=== PATIENT | female | born 1990 | race Hispanic/Latino ===

== ENCOUNTER 2016-12-12 21:23 | Emergency (ER) | payer OTHER ==
[~2016-12-12] VITALS: Ht 170.2 cm; Wt 109.4 kg
[~2016-12-12 21:23] MED LIST: AMOXIL500 MG OR; CIPRO500 MG OR; FLEXERIL OR; KEFLEX500 MG PO; LORTAB 10-325 M1 TAB PO; LORTAB 5/3255 MG PO; MOTRIN800 MG PO; PENICILLN VK500 MG PO; ULTRAM50 M1 OR; ULTRAM50 MG OR; ZOFRAN ODT4 MG OR; ZOFRAN4 MG/TAB PO
[2016-12-13] MEDS ORDERED: TRAMADOL HYDROC50 MG PO (00:52)
[2016-12-13 01:09] VITALS: BP 127/66
== END 2016-12-13 01:09 | disposition home or self-care (01) | DRG 566 ==
LOC: ED 21:23
DX: M77.31 Calcaneal spur, right foot (principal); M79.604 Pain in right leg

== ENCOUNTER 2017-01-18 14:15 | Emergency (ER) | payer SELFPAY ==
[~2017-01-18] VITALS: Ht 162.6 cm; Wt 111.0 kg
[~2017-01-18 14:15] MED LIST changes: +TRAMADOL HYDROC50 MG PO
[2017-01-18 15:06] LABS: INFLUENZA A NONE DETECTED (NONE DETECT); INFLUENZA B NONE DETECTED (NONE DETECT)
[2017-01-18] MEDS ORDERED: ZITHROMAX250 MG PO (16:18)
[2017-01-18 16:31] VITALS: BP 139/83
== END 2017-01-18 16:33 | disposition home or self-care (01) | DRG 203 ==
LOC: ED 14:15
PROVIDERS: Emergency Medicine
DX: J40 Bronchitis, not specified as acute or chronic (principal); R09.81 Nasal congestion; R05 Cough; R50.9 Fever, unspecified; R06.02 Shortness of breath; M79.1 Myalgia

== ENCOUNTER 2017-12-12 10:25 | Emergency (ER) | payer SELFPAY ==
[~2017-12-12] VITALS: Ht 162.6 cm; Wt 109.0 kg
[~2017-12-12 10:25] MED LIST changes: +ZITHROMAX250 MG PO
[2017-12-12 11:14] LABS: INFLUENZA A NONE DETECTED (NONE DETECT); INFLUENZA B NONE DETECTED (NONE DETECT)
[2017-12-12] MEDS ORDERED: ONDANSETRON4 MG PO (11:29)
[2017-12-12] MEDS ORDERED: TAM75CAP PO (11:29)
[2017-12-12 11:35] VITALS: BP 118/76
[2017-12-13] MEDS ORDERED: AMOXICILLIN500 MG PO (22:17)
== END 2017-12-12 11:35 | disposition home or self-care (01) | DRG 153 ==
LOC: ED 10:25
PROVIDERS: Family Medicine
DX: J11.1 Influenza due to unidentified influenza virus with other respiratory manifestations (principal); H92.01 Otalgia, right ear; M54.2 Cervicalgia; R05 Cough; R09.81 Nasal congestion; R50.9 Fever, unspecified

== ENCOUNTER 2017-12-13 19:56 | Emergency (ER) | payer BC ==
[~2017-12-13] VITALS: Ht 162.6 cm; Wt 108.0 kg
[~2017-12-13 19:56] MED LIST changes: +ONDANSETRON4 MG PO; +TAM75CAP PO
[2017-12-13] MEDS ORDERED: AMOXICILLIN500 MG PO (22:17)
[2017-12-13 22:20] VITALS: BP 105/57
== END 2017-12-13 22:20 | disposition home or self-care (01) | DRG 153 ==
LOC: ED 19:56
DX: J11.1 Influenza due to unidentified influenza virus with other respiratory manifestations (principal); H92.01 Otalgia, right ear; R05 Cough; R11.2 Nausea with vomiting, unspecified; R50.9 Fever, unspecified

== ENCOUNTER 2018-07-24 18:51 | Emergency (ER) | payer SELFPAY ==
[~2018-07-24] VITALS: Ht 162.6 cm; Wt 110.0 kg
[~2018-07-24 18:51] MED LIST changes: +AMOXICILLIN500 MG PO
[2018-07-24 20:09] LABS: URINE BILIRUBIN - DIPSTICK NEGATIVE (NEGATIVE); URINE BLOOD DIPSTICK TRACE-INTACT (NEGATIVE); URINE COLOR YELLOW; URINE GLUCOSE - DIPSTICK NEGATIVE (NEGATIVE); URINE KETONE NEGATIVE (NEGATIVE); URINE LEUK ESTERASE NEGATIVE (NEGATIVE); URINE PROTEIN - DIPSTICK NEGATIVE (NEG-TRACE); URINE SPECIFIC GRAVITY >=1.030
[2018-07-24 20:11] LABS: URINE CLARITY HAZY; URINE NITRITE - DIPSTICK POSITIVE (Negative)
[2018-07-24 20:18] LABS: URINE BACTERIA MANY hpf; URINE RBC 0-2 RBC/hpf (0-5); URINE SQUAMOUS EPITHELIAL CELL FEW EPI/hpf (0-FEW)
[2018-07-24] MEDS ORDERED: CIPROFLOXACN500 MG PO (21:15)
[2018-07-24 21:22] VITALS: BP 134/73
[2018-07-25] MEDS ORDERED: FLEXERIL PO (21:35)
[2018-07-25] MEDS ORDERED: ULTRAM50 M1 PO (21:35)
== END 2018-07-24 21:22 | disposition home or self-care (01) | DRG 690 ==
LOC: ED 18:51
PROVIDERS: Emergency Medicine
DX: N39.0 Urinary tract infection, site not specified (principal); M54.5 Low back pain; R35.0 Frequency of micturition; B96.20 Unspecified Escherichia coli [E. coli] as the cause of diseases classified elsewhere

== ENCOUNTER 2018-07-25 20:00 | Emergency (ER) | payer SELFPAY ==
[~2018-07-25] VITALS: Ht 162.6 cm; Wt 110.0 kg
[~2018-07-25 20:00] MED LIST changes: +CIPROFLOXACN500 MG PO
[2018-07-25] MEDS ORDERED: FLEXERIL PO (21:35)
[2018-07-25] MEDS ORDERED: ULTRAM50 M1 PO (21:35)
[2018-07-25 22:00] VITALS: BP 126/68
== END 2018-07-25 22:00 | disposition home or self-care (01) | DRG 552 ==
LOC: ED 20:00
DX: S33.5XXA Sprain of ligaments of lumbar spine, initial encounter (principal); X50.0XXA Overexertion from strenuous movement or load, initial encounter; Y93.89 Activity, other specified; Y92.89 Other specified places as the place of occurrence of the external cause

== ENCOUNTER 2018-07-26 06:50 | Emergency (ER) | payer SELFPAY ==
[~2018-07-26] VITALS: Ht 162.6 cm; Wt 110.5 kg
[~2018-07-26 06:50] MED LIST changes: +FLEXERIL PO; +ULTRAM50 M1 PO
[2018-07-26 07:31] LABS: HEMATOCRIT 36.5 % (37.0-47.0); HEMOGLOBIN 11.7 g/dl (12.0-16.0); IMMATURE GRANULOCYTES 0.3 % (0.0-5.0); MEAN CELL VOLUME 86.3 fL CALC (80.0-100.0); MEAN CORPUSCULAR HGB 27.7 pG CALC (26.0-32.0); MEAN CORPUSCULAR HGB CONC 32.1 g/L CALC (32.0-36.0); NEUT# 4.3 thou/uL (2.00-7.15); RED BLOOD COUNT 4.23 mill/uL (4.20-5.60); RED CELL DISTRI WIDTH 12.7 % (11.5-15.5)
[2018-07-26 07:46] LABS: ANION GAP 12 (6-22 (CALC)); BILIRUBIN, TOTAL 0.3 mg/dL (0.0-1.4); BUN 15 mg/dL (7-17); BUN/CREATININE RATIO 25 (12-20 (CALC)); C-REACTIVE PROTEIN < 0.5 mg/dL (0-0.9); CARBON DIOXIDE 25 mmol/l (22-30); CHLORIDE 110 mmol/l (95-108); CREATININE 0.6 mg/dL (0.5-1.0); GFR > 60 ML/MIN (>=60 (CALC)); GFR FOR AFR.AMER. > 60 ML/MIN (>=60 (CALC)); POTASSIUM 4.4 mmol/l (3.5-5.1); SGOT/AST 38 u/l (14-36); SODIUM 143 mmol/l (137-146); TOTAL PROTEIN 7.5 g/dL (6.3-8.2)
[2018-07-26 07:47] LABS: ALKALINE PHOSPHATASE 70 u/l (38-126)
[2018-07-26 08:10] LABS: URINE BILIRUBIN - DIPSTICK NEGATIVE (NEGATIVE); URINE BLOOD DIPSTICK TRACE-LYSED (NEGATIVE); URINE COLOR YELLOW; URINE GLUCOSE - DIPSTICK NEGATIVE (NEGATIVE); URINE KETONE NEGATIVE (NEGATIVE); URINE LEUK ESTERASE NEGATIVE (NEGATIVE); URINE NITRITE - DIPSTICK NEGATIVE (Negative); URINE PROTEIN - DIPSTICK NEGATIVE (NEG-TRACE); URINE SPECIFIC GRAVITY >=1.030; URINE UROBILINOGEN - DIPSTICK 0.2 E.U./dL (0.2)
[2018-07-26 08:11] LABS: URINE CLARITY SL CLOUDY
[2018-07-26 08:17] LABS: BARBITURATES NEGATIVE (NEGATIVE); COCAINE NEGATIVE (NEGATIVE); METHADONE NEGATIVE (NEGATIVE); OXCYCODONE NEGATIVE (NEGATIVE); TETRAHYDROCANNABIONOL NEGATIVE (NEGATIVE); TRICYLIC ANTIDEPRESSANTS NEGATIVE (NEGATIVE)
[2018-07-26 10:40] VITALS: BP 118/57
== END 2018-07-26 10:45 | disposition home or self-care (01) | DRG 552 ==
LOC: ED 06:50
PROVIDERS: Emergency Medicine
DX: M54.5 Low back pain (principal)
CPT/HCPCS: Q9967

== ENCOUNTER 2018-09-25 06:19 | Emergency (ER) | payer SELFPAY ==
[~2018-09-25] VITALS: Ht 162.6 cm; Wt 90.9 kg
[2018-09-25] MEDS ORDERED: CYCLOBENZAPR5 MG PO (07:50)
[2018-09-25 07:55] VITALS: BP 132/82
== END 2018-09-25 08:10 | disposition home or self-care (01) | DRG 552 ==
LOC: ED 06:19
DX: M54.41 Lumbago with sciatica, right side (principal)

== ENCOUNTER 2019-03-01 20:33 | Emergency (ER) | payer OTHER ==
[~2019-03-01] VITALS: Ht 162.6 cm; Wt 100.0 kg
[~2019-03-01 20:33] MED LIST changes: +CYCLOBENZAPR5 MG PO
[2019-03-01] MEDS ORDERED: PRILOSEC20 MG/CAP PO (20:43)
[2019-03-01 21:21] LABS: HEMATOCRIT 38.8 % (37.0-47.0); HEMOGLOBIN 12.7 g/dl (12.0-16.0); IMMATURE GRANULOCYTES 0.5 % (0.0-5.0); MEAN CELL VOLUME 88.4 fL CALC (80.0-100.0); MEAN CORPUSCULAR HGB 28.9 pG CALC (26.0-32.0); MEAN CORPUSCULAR HGB CONC 32.7 g/L CALC (32.0-36.0); NEUT# 11.55 thou/uL (2.00-7.15); RED BLOOD COUNT 4.39 mill/uL (4.20-5.60); RED CELL DISTRI WIDTH 12.6 % (11.5-15.5)
[2019-03-01 21:27] LABS: URINE BILIRUBIN - DIPSTICK NEGATIVE (NEGATIVE); URINE BLOOD DIPSTICK SMALL (NEGATIVE); URINE COLOR YELLOW; URINE GLUCOSE - DIPSTICK NEGATIVE (NEGATIVE); URINE KETONE NEGATIVE (NEGATIVE); URINE LEUK ESTERASE NEGATIVE (NEGATIVE); URINE PROTEIN - DIPSTICK TRACE mg/dL (NEG-TRACE); URINE SPECIFIC GRAVITY >=1.030
[2019-03-01 21:33] LABS: URINE NITRITE - DIPSTICK POSITIVE (Negative)
[2019-03-01 21:37] LABS: ALBUMIN 4.7 g/dL (3.2-5.0); ALKALINE PHOSPHATASE 101 u/l (38-126); AMYLASE 86 u/l (30-110); ANION GAP 16 (6-22 (CALC)); BUN 14 mg/dL (7-17); BUN/CREATININE RATIO 23 (12-20 (CALC)); CARBON DIOXIDE 23 mmol/l (22-30); CHLORIDE 108 mmol/l (95-108); CREATININE 0.6 mg/dL (0.5-1.0); GFR > 60 ML/MIN (>=60 (CALC)); GFR FOR AFR.AMER. > 60 ML/MIN (>=60 (CALC)); LIPASE 33 u/l (23-300); SODIUM 142 mmol/l (137-146); TOTAL PROTEIN 8.7 g/dL (6.3-8.2)
[2019-03-01 21:48] LABS: MYOGLOBIN 22 ng/mL (0 - 62); URINE BACTERIA FEW hpf; URINE SQUAMOUS EPITHELIAL CELL FEW EPI/hpf (0-FEW)
[2019-03-01 21:49] LABS: BILIRUBIN, TOTAL 0.7 mg/dL (0.0-1.4); SGOT/AST 91 u/l (14-36)
[2019-03-01] MEDS ORDERED: KEFLEX500 M1 PO (23:45)
[2019-03-02 01:10] VITALS: BP 112/63
== END 2019-03-02 01:10 | disposition home or self-care (01) ==
LOC: ED 20:33
PROVIDERS: Emergency Medicine
DX: N39.0 Urinary tract infection, site not specified (principal); B96.20 Unspecified Escherichia coli [E. coli] as the cause of diseases classified elsewhere; R10.13 Epigastric pain; R11.2 Nausea with vomiting, unspecified; R19.7 Diarrhea, unspecified

== ENCOUNTER 2020-01-08 | Emergency (ER) | payer MEDICAID ==
[~2020-01-08] MED LIST changes: +KEFLEX500 M1 PO; +PRILOSEC20 MG/CAP PO
[2020-01-08 18:46] LABS: URINE BILIRUBIN - DIPSTICK NEGATIVE (NEGATIVE); URINE BLOOD DIPSTICK SMALL (NEGATIVE); URINE COLOR YELLOW; URINE GLUCOSE - DIPSTICK NEGATIVE (NEGATIVE); URINE KETONE NEGATIVE (NEGATIVE); URINE LEUK ESTERASE NEGATIVE (NEGATIVE); URINE PROTEIN - DIPSTICK NEGATIVE (NEG-TRACE); URINE SPECIFIC GRAVITY >=1.030
[2020-01-08 18:47] LABS: URINE NITRITE - DIPSTICK POSITIVE (Negative)
[2020-01-08 18:48] LABS: HEMATOCRIT 36.5 % (37.0-47.0); IMMATURE GRANULOCYTES 0.6 % (0.0-5.0); MEAN CELL VOLUME 89.7 fL CALC (80.0-100.0); MEAN CORPUSCULAR HGB 29.5 pG CALC (26.0-32.0); MEAN CORPUSCULAR HGB CONC 32.9 g/dL CAL (32.0-36.0); NEUT# 9.59 thou/uL (2.00-7.15); RED BLOOD COUNT 4.07 mill/uL (4.20-5.60); RED CELL DISTRI WIDTH 12.5 % (11.5-15.5)
[2020-01-08 18:49] LABS: BARBITURATES NEGATIVE (NEGATIVE); COCAINE NEGATIVE (NEGATIVE); METHADONE NEGATIVE (NEGATIVE); OXCYCODONE NEGATIVE (NEGATIVE); TETRAHYDROCANNABIONOL NEGATIVE (NEGATIVE); TRICYLIC ANTIDEPRESSANTS NEGATIVE (NEGATIVE)
[2020-01-08 18:55] LABS: URINE BACTERIA MANY hpf; URINE RBC 0-2 RBC/hpf (0-5); URINE SQUAMOUS EPITHELIAL CELL FEW EPI/hpf (0-FEW)
[2020-01-08 19:01] LABS: ALBUMIN 4.2 g/dL (3.2-5.0); ALKALINE PHOSPHATASE 123 u/l (38-126); ANION GAP 12 (6-22 (CALC)); BILIRUBIN, TOTAL 0.7 mg/dL (0.0-1.4); BUN 14 mg/dL (7-17); BUN/CREATININE RATIO 25 (12-20 (CALC)); CARBON DIOXIDE 25 mmol/l (22-30); CHLORIDE 102 mmol/l (95-108); CREATININE 0.6 mg/dL (0.5-1.0); GFR > 60 ML/MIN (>=60 (CALC)); GFR FOR AFR.AMER. > 60 ML/MIN (>=60 (CALC)); SGOT/AST 59 u/l (14-36); SODIUM 136 mmol/l (137-146); TOTAL PROTEIN 8.1 g/dL (6.3-8.2)
[2020-01-08] MEDS ORDERED: CEPHALEXIN500 M1 PO (19:03)
== END 2020-01-08 19:15 | disposition home or self-care (01) | DRG 880 ==
PROVIDERS: Emergency Medicine
DX: F41.9 Anxiety disorder, unspecified (principal); N39.0 Urinary tract infection, site not specified; B96.1 Klebsiella pneumoniae [K. pneumoniae] as the cause of diseases classified elsewhere

== ENCOUNTER 2020-12-18 | Emergency (ER) | payer OTHER ==
[~2020-12-18] MED LIST changes: +CEPHALEXIN500 M1 PO
[2020-12-18 18:15] LABS: URINE BILIRUBIN - DIPSTICK NEGATIVE (NEGATIVE); URINE BLOOD DIPSTICK TRACE-INTACT (NEGATIVE); URINE COLOR YELLOW; URINE GLUCOSE - DIPSTICK NEGATIVE (NEGATIVE); URINE KETONE NEGATIVE (NEGATIVE); URINE LEUK ESTERASE NEGATIVE (NEGATIVE); URINE PROTEIN - DIPSTICK NEGATIVE (NEG-TRACE)
[2020-12-18 18:17] LABS: URINE NITRITE - DIPSTICK NEGATIVE (Negative)
== END 2020-12-18 20:00 | disposition home or self-care (01) ==
PROVIDERS: Emergency Medicine
DX: U07.1 COVID-19 (principal); F41.9 Anxiety disorder, unspecified

== ENCOUNTER 2021-03-13 18:16 | Emergency (ER) | payer OTHER ==
[~2021-03-13] VITALS: Ht 162.6 cm; Wt 109.1 kg
[2021-03-13 19:58] VITALS: BP 122/85
== END 2021-03-13 20:04 | disposition home or self-care (01) ==
LOC: ED 18:16
DX: J06.9 Acute upper respiratory infection, unspecified (principal); F41.9 Anxiety disorder, unspecified; Z20.822 Contact with and (suspected) exposure to COVID-19

== ENCOUNTER 2021-07-02 07:50 | Emergency (ER) | payer OTHER ==
[~2021-07-02] VITALS: Ht 162.6 cm; Wt 111.4 kg
[2021-07-02] MEDS ORDERED: FLEXERIL5 M1 PO (08:55)
[2021-07-02] MEDS ORDERED: DECADRON4 M1 PO (08:55)
[2021-07-02 09:27] VITALS: BP 131/68
== END 2021-07-02 09:43 | disposition home or self-care (01) ==
LOC: ED 07:50
DX: M54.50 Low back pain, unspecified (principal); F41.9 Anxiety disorder, unspecified

== ENCOUNTER 2021-08-23 21:16 | Emergency (ER) | payer OTHER ==
[~2021-08-23] VITALS: Ht 162.6 cm; Wt 111.0 kg
[~2021-08-23 21:16] MED LIST changes: +DECADRON4 M1 PO; +FLEXERIL5 M1 PO
[2021-08-23 21:41] LABS: HEMATOCRIT 40.2 % (37.0-47.0); HEMOGLOBIN 13.2 g/dl (12.0-16.0); IMMATURE GRANULOCYTES 0.2 % (0.0-5.0); MEAN CELL VOLUME 91.4 fL CALC (80.0-100.0); MEAN CORPUSCULAR HGB CONC 32.8 g/dL CAL (32.0-36.0); NEUT# 9.47 thou/uL (2.00-7.15); RED BLOOD COUNT 4.4 mill/uL (4.20-5.60); RED CELL DISTRI WIDTH 12.5 % (11.5-15.5)
[2021-08-23 22:00] LABS: ALBUMIN 4.4 g/dL (3.2-5.0); ALKALINE PHOSPHATASE 89 u/l (38-126); AMYLASE 66 u/l (30-110); ANION GAP 14 (6-22 (CALC)); BUN 11 mg/dL (7-17); BUN/CREATININE RATIO 18 (12-20 (CALC)); CARBON DIOXIDE 29 mmol/l (22-30); CHLORIDE 102 mmol/l (95-108); CREATININE 0.6 mg/dL (0.5-1.0); ETHYL ALCOHOL 0 mg/dl (0-30); GFR > 60 ML/MIN (>=60 (CALC)); GFR FOR AFR.AMER. > 60 ML/MIN (>=60 (CALC)); LIPASE 28 u/l (23-300); POTASSIUM 3.5 mmol/l (3.5-5.1); SODIUM 141 mmol/l (137-146); TOTAL PROTEIN 8.8 g/dL (6.3-8.2)
[2021-08-23 22:01] LABS: BILIRUBIN, TOTAL 1.1 mg/dL (0.0-1.4); SGOT/AST 162 u/l (14-36)
[2021-08-23 23:27] VITALS: BP 164/78
[2021-08-23 23:42] LABS: URINE BILIRUBIN - DIPSTICK NEGATIVE (NEGATIVE); URINE BLOOD DIPSTICK NEGATIVE (NEGATIVE); URINE COLOR YELLOW; URINE GLUCOSE - DIPSTICK NEGATIVE (NEGATIVE); URINE KETONE NEGATIVE (NEGATIVE); URINE LEUK ESTERASE NEGATIVE (NEGATIVE); URINE PROTEIN - DIPSTICK TRACE mg/dL (NEG-TRACE); URINE UROBILINOGEN - DIPSTICK 0.2 E.U./dL (0.2)
[2021-08-23 23:43] LABS: URINE NITRITE - DIPSTICK NEGATIVE (Negative)
[2021-08-23] MEDS ORDERED: PROMETHAZINE HY25 M1 PO (23:51)
== END 2021-08-24 00:10 | disposition home or self-care (01) ==
LOC: ED 21:16
PROVIDERS: Family Medicine
DX: R11.2 Nausea with vomiting, unspecified (principal); F41.9 Anxiety disorder, unspecified
CPT/HCPCS: S0164

== ENCOUNTER 2022-03-18 17:58 | Emergency (ER) | payer BC, OTHER ==
[~2022-03-18] VITALS: Ht 162.6 cm; Wt 111.4 kg
[~2022-03-18 17:58] MED LIST changes: +PROMETHAZINE HY25 M1 PO
[2022-03-18 18:07] VITALS: BP 147/82
[2022-03-18 18:27] LABS: URINE BILIRUBIN - DIPSTICK NEGATIVE (NEGATIVE); URINE BLOOD DIPSTICK TRACE-INTACT (NEGATIVE); URINE COLOR YELLOW; URINE GLUCOSE - DIPSTICK NEGATIVE (NEGATIVE); URINE KETONE NEGATIVE (NEGATIVE); URINE LEUK ESTERASE NEGATIVE (NEGATIVE); URINE PH 5.5 (4.5-8.0); URINE PROTEIN - DIPSTICK NEGATIVE (NEG-TRACE); URINE SPECIFIC GRAVITY 1.025; URINE UROBILINOGEN - DIPSTICK 0.2 E.U./dL (0.2)
[2022-03-18 18:31] LABS: URINE NITRITE - DIPSTICK NEGATIVE (Negative)
[2022-03-18] MEDS ORDERED: PERCOCET 5/321 COMBO PO (19:27)
[2022-03-18] MEDS ORDERED: NAPROXEN500 MG PO (19:27)
[2022-03-18] MEDS ORDERED: CYCLOBENZAPRINE10 MG PO (19:27)
[2022-03-18 19:33] VITALS: BP 147/82
== END 2022-03-18 20:00 | disposition home or self-care (01) | DRG 552 ==
LOC: ED 17:58
PROVIDERS: Nurse Practitioner
DX: M54.50 Low back pain, unspecified (principal); F41.9 Anxiety disorder, unspecified

== ENCOUNTER 2022-12-13 08:48 | Observation (INO) | payer BC, OTHER ==
[2022-12-13] VITALS (10 sets, daily range): BP systolic 84–142; BP diastolic 43–103
[~2022-12-13] VITALS: Ht 162.6 cm; Wt 112.9 kg
[~2022-12-13 08:48] MED LIST changes: +CYCLOBENZAPRINE10 MG PO; +NAPROXEN500 MG PO; +PERCOCET 5/321 COMBO PO
[2022-12-13 09:10] LABS: URINE BILIRUBIN - DIPSTICK NEGATIVE (NEGATIVE); URINE BLOOD DIPSTICK LARGE (NEGATIVE); URINE COLOR YELLOW; URINE GLUCOSE - DIPSTICK NEGATIVE (NEGATIVE); URINE KETONE NEGATIVE (NEGATIVE); URINE PROTEIN - DIPSTICK 30 mg/dL (NEG-TRACE); URINE SPECIFIC GRAVITY 1.015
[2022-12-13 09:11] LABS: URINE LEUK ESTERASE MODERATE (NEGATIVE); URINE NITRITE - DIPSTICK POSITIVE (Negative)
[2022-12-13 09:12] LABS: URINE BACTERIA MANY hpf; URINE SQUAMOUS EPITHELIAL CELL FEW EPI/hpf (0-FEW); URINE WBC TNTC WBC/hpf (0-5)
[2022-12-13 09:31] LABS: BASO% 0.1 % (0-3); EOS% 0.5 % (0-8); HEMATOCRIT 37.8 % (37.0-47.0); HEMOGLOBIN 12.5 g/dl (12.0-16.0); IMMATURE GRANULOCYTES 0.2 % (0.0-5.0); LYMPH% 5.6 % (15-41); MEAN CELL VOLUME 89.8 fL CALC (80.0-100.0); MEAN CORPUSCULAR HGB 29.7 pG CALC (26.0-32.0); MEAN CORPUSCULAR HGB CONC 33.1 g/dL CAL (32.0-36.0); MONO% 5.2 % (2-13); NEUT# 13.16 thou/uL (2.00-7.15); NEUT% 88.4 % (42-76); RED BLOOD COUNT 4.21 mill/uL (4.20-5.60); RED CELL DISTRI WIDTH 12.1 % (11.5-15.5)
[2022-12-13 10:36] LABS: ALBUMIN 4.2 g/dL (3.2-5.0); ALKALINE PHOSPHATASE 98 u/l (38-126); ANION GAP 13 (6-22 (CALC)); BUN 9 mg/dL (7-17); BUN/CREATININE RATIO 13 (12-20 (CALC)); CARBON DIOXIDE 24 mmol/l (22-30); CHLORIDE 104 mmol/l (95-108); CREATININE 0.7 mg/dL (0.5-1.0); GFR FOR AFR.AMER. > 60 ML/MIN (>=60 (CALC)); GFR OTHER RACES > 60 ML/MIN (>=60 (CALC)); LIPASE 27 u/l (23-300); POTASSIUM 4.2 mmol/l (3.5-5.1); SODIUM 137 mmol/l (137-146); TOTAL PROTEIN 7.8 g/dL (6.3-8.2)
[2022-12-13 10:37] LABS: BILIRUBIN, TOTAL 0.9 mg/dL (0.02-1.3); SGOT/AST 83 u/l (14-36)
[2022-12-14 04:06] VITALS: BP 117/40
[2022-12-14 05:33] LABS: BASO% 0.3 % (0-3); EOS% 0.8 % (0-8); HEMATOCRIT 33.9 % (37.0-47.0); HEMOGLOBIN 11.1 g/dl (12.0-16.0); IMMATURE GRANULOCYTES 0.2 % (0.0-5.0); LYMPH% 15.5 % (15-41); MEAN CELL VOLUME 90.2 fL CALC (80.0-100.0); MEAN CORPUSCULAR HGB 29.5 pG CALC (26.0-32.0); MEAN CORPUSCULAR HGB CONC 32.7 g/dL CAL (32.0-36.0); MONO% 11.2 % (2-13); NEUT# 8.3 thou/uL (2.00-7.15); RED BLOOD COUNT 3.76 mill/uL (4.20-5.60); RED CELL DISTRI WIDTH 12.2 % (11.5-15.5)
[2022-12-14 05:58] LABS: ALBUMIN 3.5 g/dL (3.2-5.0); ALKALINE PHOSPHATASE 88 u/l (38-126); ANION GAP 11 (6-22 (CALC)); BUN 9 mg/dL (7-17); BUN/CREATININE RATIO 13 (12-20 (CALC)); CARBON DIOXIDE 24 mmol/l (22-30); CHLORIDE 106 mmol/l (95-108); CREATININE 0.7 mg/dL (0.5-1.0); GFR FOR AFR.AMER. > 60 ML/MIN (>=60 (CALC)); GFR OTHER RACES > 60 ML/MIN (>=60 (CALC)); SODIUM 136 mmol/l (137-146); TOTAL PROTEIN 6.8 g/dL (6.3-8.2)
[2022-12-14 06:12] LABS: BILIRUBIN, TOTAL 0.5 mg/dL (0.02-1.3); SGOT/AST 164 u/l (14-36)
[2022-12-14 06:20] VITALS: BP 108/46; BP 117/49
[2022-12-14] MEDS ORDERED: TORADOL PO (14:35)
[2022-12-14] MEDS ORDERED: CIPROFLOXACN500 MG PO (14:35)
[2022-12-14 14:56] VITALS: BP 109/46
== END 2022-12-14 14:57 | disposition home or self-care (01) | DRG 690 ==
LOC: ED 08:48 → ED-I 11:38 → ED 12:27 → MS2 12:28
PROVIDERS: Family Medicine; Nurse Practitioner Family; ADMIT Internal Medicine; ATTEND Internal Medicine
DX: N12 Tubulo-interstitial nephritis, not specified as acute or chronic (principal); F41.9 Anxiety disorder, unspecified; E66.9 Obesity, unspecified; M54.9 Dorsalgia, unspecified; G89.29 Other chronic pain; Z20.822 Contact with and (suspected) exposure to COVID-19
CPT/HCPCS: G0378; J1650; Q9967

== ENCOUNTER 2023-06-27 06:31 | Emergency (ER) | payer SELFPAY ==
[~2023-06-27] VITALS: Ht 162.6 cm; Wt 114.0 kg
[2023-06-27] VITALS (13 sets, daily range): BP systolic 99–126; BP diastolic 42–60
[~2023-06-27 06:31] MED LIST changes: +TORADOL PO
== END 2023-06-27 10:17 | disposition home or self-care (01) | DRG 552 ==
LOC: ED 06:31
DX: M54.50 Low back pain, unspecified (principal)

== ENCOUNTER 2023-09-29 16:43 | Emergency (ER) | payer OTHER ==
[~2023-09-29] VITALS: Ht 165.1 cm; Wt 113.3 kg
[2023-09-29 17:04] VITALS: BP 122/51
[2023-09-29 18:01] VITALS: BP 119/61
[2023-09-29] MEDS ORDERED: PENICILLN VK500 MG PO (18:06)
[2023-09-29 18:26] VITALS: BP 119/61
== END 2023-09-29 18:28 | disposition home or self-care (01) ==
LOC: ED 16:43
DX: J02.9 Acute pharyngitis, unspecified (principal); Z20.822 Contact with and (suspected) exposure to COVID-19

== ENCOUNTER 2024-11-07 06:50 | Day surgery (SDC) | payer OTHER ==
[~2024-11-07] VITALS: Ht 167.6 cm; Wt 116.1 kg
[2024-11-07] MEDS ORDERED: SODIUM CHLORIDE 0.9% 10 ML SYR ONE (06:53)
[2024-11-07] MEDS ORDERED: TRIAMCINOLONE ACETONIDE 40 MG/ML ML ONE (06:53)
[2024-11-07] MEDS ORDERED: BUPIVACAINE HCL PF 0.5 % 50 MG/10 ML SDV ONE (06:53)
[2024-11-07] MEDS ORDERED: LIDOCAINE MPF 1% (10 MG/ML) 5 ML VIAL ONE (06:53)
[2024-11-07 07:12] LABS: HCG SERUM/URINE (NEG/POS) NEGATIVE (NEGATIVE)
[2024-11-07 09:14] VITALS: BP 131/85
== END 2024-11-07 08:15 | disposition home or self-care (01) ==
LOC: ORM 06:50
PROVIDERS: ATTEND Student in an Organized Health Care Education/Training Program
DX: M46.1 Sacroiliitis, not elsewhere classified (principal); M53.3 Sacrococcygeal disorders, not elsewhere classified; G89.4 Chronic pain syndrome
CPT/HCPCS: J3301

== ENCOUNTER 2024-12-10 10:21 | Emergency (ER) | payer OTHER ==
[2024-12-10] VITALS (8 sets, daily range): BP systolic 111–132; BP diastolic 58–81
[~2024-12-10] VITALS: Ht 167.6 cm; Wt 112.0 kg
[2024-12-10] MEDS ORDERED: KETOROLAC TROMETHAMINE 30 MG/ML SDV IM ONE (10:40)
[2024-12-10] MEDS ORDERED: METHOCARBAMOL 500 MG/TAB PO ONE (10:40)
[2024-12-10] MEDS ORDERED: MORPHINE SULFATE 4 MG/ML VIAL IM ONE (11:30)
[2024-12-10] MEDS ORDERED: ONDANSETRON 4 MG/TAB ODT PO ONE (11:30)
[2024-12-10] MEDS ORDERED: PREDNISONE50 MG PO (11:31)
[2024-12-10] MEDS ORDERED: FLEXERIL5 M1 PO (11:31)
[2024-12-10] MEDS ORDERED: TRAMADOL HYDROC50 M1 PO (11:31)
[2024-12-10] MEDS ORDERED: EC-NAPROXEN500 MG PO (11:31)
== END 2024-12-10 11:48 | disposition home or self-care (01) ==
LOC: ED 10:21
DX: M51.369 Other intervertebral disc degeneration, lumbar region without mention of lumbar back pain or lower extremity pain (principal); E66.9 Obesity, unspecified; K21.9 Gastro-esophageal reflux disease without esophagitis